=== PATIENT | female | born 1970 | race Caucasian/White ===

== ENCOUNTER 2019-03-23 12:48 | Observation (INO) | payer BC ==
--- NOTE | 2019-03-23 13:02 | PDOC ---
History of Present Illness - General Chief Complaint: Lightheaded Stated Complaint: LIGHTHEADED Time Seen by Provider: 03/23/19 13:02 History Source: Patient Exam Limitations: No Limitations - History of Present Illness Initial Comments: 03/23/19 14:08 49yF w PMHx HLD presenting w lightheadedness, dizziness, R ear tinnitus. Has had symptoms progressively worsening for past 2 weeks not improved w meclizine. 4d ago saw ENT, diagnosed w R ear infection, prescribed ciprofloxacin ear drops , cefdinir. Currently has constant dizziness (room spinning) worse w movement, and new chills for past 2d. Denies fever, headache, nausea/vomiting, chest pain , SOB. Past History - Past Medical History Allergies/Adverse Reactions: Allergies Allergy/AdvReac Type Severity Reaction Status Date / Time codeine AdvReac Intermediate Verified 03/23/19 12:54 Home Medications: Ambulatory Orders Ibuprofen [Motrin -] 600 mg PO TID PRN #21 tablet 08/14/13 Tramadol HCl 50 mg PO BID PRN #10 tablet 08/14/13 COPD: No Other medical history: vertigo - Immunization History Immunization Up to Date: No - Psycho Social/Smoking Cessation Hx Smoking History: Never smoked Have you smoked in the past 12 months: No Information on smoking cessation initiated: No Hx Alcohol Use: No Drug/Substance Use Hx: No Review of Systems - Review of Systems Constitutional: Yes: Chills. No: Fever HEENTM: No: Eye Pain, Recent change in vision, Ear Pain, Nose Pain, Throat Pain , Mouth Pain Respiratory: No: Cough, Shortness of Breath Cardiac (ROS): No: Chest Pain, Palpitations ABD/GI: No: Abdominal Distended, Constipated, Diarrhea, Nausea, Vomiting : No: Burning, Dysuria, Hematuria Musculoskeletal: No: Back Pain, Joint Pain Integumentary: No: Bruising, Flushing, Lesions Neurological: Yes: Unsteady Gait, Dizziness. No: Headache, Seizure, Tingling Psychiatric: No: Anxiety, Depression Endocrine: No: Excessive Sweating, Flushing, Intolerance to Cold, Intolerance to Heat Hematologic/Lymphatic: No: Anemia, Blood Clots *Physical Exam - Vital Signs Last Vital Signs Temp Pulse Resp BP Pulse Ox 98.8 F 93 H 18 143/80 98 03/23/19 12:55 03/23/19 12:55 03/23/19 12:55 03/23/19 12:55 03/23/19 12:55 - Physical Exam General Appearance: Yes: Nourished, Appropriately Dressed, Mild Distress HEENT: positive: EOMI (no nystagmus), WILDER, Normal Voice, Hearing Grossly Normal. negative: Scleral Icterus (R), Scleral Icterus (L), Tonsillar Exudate, Tonsillar Erythema, TM Bulging, TM Dull, TM Erythema Respiratory/Chest: positive: Lungs Clear, Normal Breath Sounds. negative: Chest Tender, Respiratory Distress, Crackles, Rales, Rhonchi, Stridor, Wheezing Cardiovascular: positive: Regular Rhythm, S1, S2, Tachycardia. 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 negative: Normal Mood/Affect (tearful, anxious), Sensory Deficit, Confused, Disoriented ED Treatment Course - LABORATORY CBC & Chemistry Diagram: 03/23/19 14:00 03/23/19 14:00 Medical Decision Making - Medical Decision Making 03/23/19 14:10 EKG shows NSR, HR 78, QTc 449, no ST changes Head CT showed no acute bleed/infarct/mass lesion CXR showed L basilar haziness, no focal consolidation --- 49yF w PMHx HLD presenting w lightheadedness, vertigo, R ear tinnitus d/t peripheral vs central vertigo vs Meniere's. Normal neuro exam including neg finger/nose, alternating hands, alejandra-hallpike, with the exception of unstable balance standing up with feet together/eyes closed/palms upwards. Low concern for CVA (no focal deficits, no findings on head CT) vs ACS (neg trop, NSR EKG) vs (tested neg) vs anemia (Hgb normal) vs UTI (clean UA) Given tylenol, benadryl, reglan, 1L NS without any symptom relief. Consulted neuro Dr Mosqueda regarding vertigo - advised order zofran, brain MRI w /o contrast Admitted to m/s Dr Sylvester for vertigo Discharge - Discharge Information Problems reviewed: Yes Clinical Impression/Diagnosis: Vertigo Tinnitus Qualifiers: Laterality: right Qualified Code(s): H93.11 - Tinnitus, right ear Condition: Stable - Follow up/Referral Referrals: oS Ansari MD [Primary Care Provider] - - Patient Discharge Instructions - Post Discharge Activity
[2019-03-23] MEDS ORDERED: METOCLOPRAMIDE HCL INJECTION 10 MG/2 ML VIAL IVPUSH ONE (13:23)
[2019-03-23] MEDS ORDERED: SODIUM CHLORIDE 0.9% 1000 ML INFUS.BAG IV ONE (13:23)
[2019-03-23] MEDS ORDERED: ACETAMINOPHEN 1000 MG/100 ML VIAL (NON FORMULARY) IVPB ONE (13:23)
[2019-03-23] MEDS ORDERED: METOCLOPRAMIDE HCL INJECTION 10 MG/2 ML VIAL ONE (13:27)
[2019-03-23] MEDS ORDERED: ACETAMINOPHEN INJECTION 100 ML IVPB ONE ×2 (13:28→15:29)
[2019-03-23 14:18] LABS: BASO % 1.3 % (0-2.0); EOS % 3.2 % (0-4.5); HEMATOCRIT 37.5 % (32.4-45.2); HEMOGLOBIN 12.4 GM/dL (10.7-15.3); LYMPH % 26.5 % (8-40); MCH 26.2 pg (25.7-33.7); MCHC 32.9 g/dl (32.0-36.0); MEAN CELL VOLUME 79.7 fl (80-96); MEAN PLT VOLUME 8.4 fl (7.5-11.1); PLATELET COUNT 403 K/MM3 (134-434); RBC 4.71 M/mm3 (3.60-5.2); RDW 15.5 % (11.6-15.6); WHITE BLOOD COUNT 8.9 K/mm3 (4.0-10.0)
--- NOTE | 2019-03-23 14:18 | PDOC ---
Documentation entered by Susu Zavaleta SCRIBE, acting as scribe for Grazyna Villar DO. Grazyna Villar, DO: This documentation has been prepared by the Waqar dixon Joy, SCRIBE, under my direction and personally reviewed by me in its entirety. I confirm that the documentation accurately reflects all work, treatment, procedures, and medical decision making performed by me. Attending Attestation - Resident Resident Name: Slim,Rowdy - ED Attending Attestation I have performed the following: I have examined & evaluated the patient, The case was reviewed & discussed with the resident, I agree w/resident's findings & plan, Exceptions are as noted - HPI HPI: 03/23/19 13:37 The patient is a 49 year old female, with no significant PMH of who presents to the emergency department with dizziness for 2 weeks. Patient endorses constant dizziness that worsens with head movement. As per patient, she has seen her ENT on Sunday (03/19/19), had wax removed from her ear, and was prescribed antibiotics. Denies headache. Denies chest pain or shortness of breath. Denies fever or chills. Denies nausea, vomiting, diarrhea and constipation. Allergies: Codeine adverse reaction - Physicial Exam PE: 03/23/19 14:11 49yo female with recent dx of ear infection and wax removal by ENT with dizziness x 2 weeks -saw pmd who recommended meclizine, states it made her more dizzy -saw ENT who removed wax and start abx -cefdinir and ear steroids, states feeling better on abx, but didn't improve dizziness -feels vertiginous, sometimes with vizcarra, sometimes feels she gets blurred vision when reading and dizzy -feels she is on a boat -hx of motion sickness -will send labs, ekg, cxr, head ct -will hydrate, reglan, benadryl - Medical Decision Making 03/23/19 14:17 Gen: aaox3, uncomfortable heent: MMM, perrl, eomi neck: supple heart: +s1s2 reg lungs: cta b/l abd: soft, nt/nd +bs ext: no c/c/e neuro: cn ii-xii grossly intact, muscle strength 5/5 UE and LE, sensation intact , normal finger to nose skin: no rashes 03/23/19 14:35 pt ambulatory in the ER with a steady gait 03/23/19 15:14 labs reviewed pt to head ct 03/23/19 15:[address] neg Heart Score/ECG Review - ECG Intrepretation Comment:: 03/23/19 14:18 sinus at 78, nl axis, nl interval, no acute st/t wave findings
[2019-03-23 14:47] LABS: ALK PHOS 79 U/L (45-117); ANION GAP 6 MMOL/L (8-16); BILIRUBIN,TOTAL 0.6 mg/dL (0.2-1); BLOOD UREA NITROGEN 8.5 mg/dL (7-18); CALCIUM 9.2 mg/dL (8.5-10.1); CHLORIDE 108 mmol/L (98-107); CO2 27 mmol/L (21-32); CREATININE 0.7 mg/dL (0.55-1.3); GLUCOSE,RANDOM 123 mg/dL (74-106); MAGNESIUM 2.1 mg/dL (1.8-2.4); POTASSIUM 3.8 mmol/L (3.5-5.1); SGOT/AST 9 U/L (15-37); SGPT/ALT 19 U/L (13-61); SODIUM 141 mmol/L (136-145); TOT PROT 7.5 g/dl (6.4-8.2)
[2019-03-23 15:07] LABS: EPI CELLS 1.5 /HPF (0-5/HPF); HYALINE CASTS 0 /lpf (0-8); PH,URINE 7.5 (5.0-8.0); URINE APPEARANCE CLEAR; URINE BACTERIA 1.4 /hpf (NEGATIVE); URINE BILIRUBIN NEGATIVE (NEGATIVE); URINE COLOR YELLOW; URINE GLUCOSE (UA) NEGATIVE (NEGATIVE); URINE KETONE NEGATIVE (NEGATIVE); URINE LEUK ESTERASE 1+ (NEGATIVE); URINE NITRITE NEGATIVE (NEGATIVE); URINE PROTEIN NEGATIVE (NEGATIVE); URINE RBC 2 /hpf (0-4); URINE UROBILINOGEN 0.2 mg/dL (0.2-1.0); URINE WBC 6 /hpf (0-5)
[2019-03-23] MEDS ORDERED: ONDANSETRON 4 MG/2 ML VIAL IVPUSH ONE (17:08)
[2019-03-23] MEDS ORDERED: MECLIZINE HCL 25 MG TABLET (FP) PO ONE (18:00)
--- NOTE | 2019-03-23 18:00 | PN ---
Teaching Attending Note Name of Resident: Sierra Rose ATTENDING PHYSICIAN STATEMENT I saw and evaluated the patient. I reviewed the resident's note and discussed the case with the resident. I agree with the resident's findings and plan as documented. SUBJECTIVE: Patient is a 49yo female with recent dx of ear infection on ceftin( day #4 today ).As per patient after ear wax removal from ENT's office, she developed infection and feels dizzy when she moves her neck, no fever but chills, was started on ceftin day #4 and cipro ear drops. OBJECTIVE: Vital Signs Temperature 98.8 F 03/23/19 12:55 Pulse Rate 93 H 03/23/19 12:55 Respiratory Rate 18 03/23/19 12:55 Blood Pressure 143/80 03/23/19 12:55 O2 Sat by Pulse Oximetry (%) 98 03/23/19 12:55 GENERAL: The patient is awake, alert, and fully oriented, in no acute distress. HEAD: Normal with no signs of trauma. EYES: PERRL, extraocular movements intact, sclera anicteric, conjunctiva clear. ENT: right ear fullness , left is normal , oropharynx clear without exudates, moist mucous membranes. NECK: Trachea midline, full range of motion, supple. LUNGS: Breath sounds equal, clear to auscultation bilaterally, no wheezes, no crackles, no accessory muscle use. HEART: Regular rate and rhythm, S1, S2 without murmur, rub or gallop. ABDOMEN: Soft, nontender, nondistended, normoactive bowel sounds, no guarding, no rebound, no hepatosplenomegaly, no masses. EXTREMITIES: 2+ pulses, warm, well-perfused, no edema. NEUROLOGICAL: Cranial nerves II through XII grossly intact. Normal speech, gait not observed. PSYCH: Normal mood, normal affect. SKIN: Warm, dry, normal turgor, no rashes or lesions noted CBCD WBC 8.9 K/mm3 (4.0-10.0) 03/23/19 14:00 RBC 4.71 M/mm3 (3.60-5.2) 03/23/19 14:00 Hgb 12.4 GM/dL (10.7-15.3) 03/23/19 14:00 Hct 37.5 % (32.4-45.2) 03/23/19 14:00 MCV 79.7 fl (80-96) L 03/23/19 14:00 MCHC 32.9 g/dl (32.0-36.0) 03/23/19 14:00 RDW 15.5 % (11.6-15.6) 03/23/19 14:00 Plt Count 403 K/MM3 (134-434) 03/23/19 14:00 MPV 8.4 fl (7.5-11.1) 03/23/19 14:00 CMP Sodium 141 mmol/L (136-145) 03/23/19 14:00 Potassium 3.8 mmol/L (3.5-5.1) 03/23/19 14:00 Chloride 108 mmol/L (98-107) H 03/23/19 14:00 Carbon Dioxide 27 mmol/L (21-32) 03/23/19 14:00 Anion Gap 6 MMOL/L (8-16) L 03/23/19 14:00 BUN 8.5 mg/dL (7-18) 03/23/19 14:00 Creatinine 0.7 mg/dL (0.55-1.3) 03/23/19 14:00 Random Glucose 123 mg/dL (74-106) H 03/23/19 14:00 Calcium 9.2 mg/dL (8.5-10.1) 03/23/19 14:00 Total Bilirubin 0.6 mg/dL (0.2-1) 03/23/19 14:00 AST 9 U/L (15-37) L 03/23/19 14:00 ALT 19 U/L (13-61) 03/23/19 14:00 Alkaline Phosphatase 79 U/L (45-117) 03/23/19 14:00 Total Protein 7.5 g/dl (6.4-8.2) 03/23/19 14:00 Albumin 4.0 g/dl (3.4-5.0) 03/23/19 14:00 CARDIAC ENZYMES Creatine Kinase 54 U/L (26-192) 03/23/19 14:00 Troponin I < 0.02 ng/ml (0.00-0.05) 03/23/19 14:00 Home Medications Medication Instructions Recorded Ibuprofen [Motrin -] 600 mg PO TID PRN #21 tablet 08/14/13 Tramadol HCl 50 mg PO BID PRN #10 tablet 08/14/13 ASSESSMENT AND PLAN: Patient is a 49yo female with no significant PMHx , a month ago patient was seen By ENT where had a wax removed from the right ear, as per patient afterward developed right ear infection where she was given Ceftin for a week , taken 4 days of oral antibiotics and started to feel worse and became very dizzy and was given oral Meclizine which did not help. Patient presented TODAY with worsening symptoms, AND UNABLE TO AMBULATE SINCE IS FEELING TOO DIZZY DESPITE MULTIPLE AGENTS THAT WAS GIVEN IN ED. WILL PLACE THE PATIENT ON OBSERVATION. MRI ORDERED BY NEUROLOGIST. #Acute dizziness #Right ear infection WILL START THE PATIENT ON IV ROCEPHIN #positional vertigo IVF Rocephin 1GM IV ear drops; CORTISPORIN OTIC ENT consult MRI is pending neuro consult Panda requesting MRI DVT PX;
[2019-03-23] MEDS ORDERED: ONDANSETRON 4 MG/2 ML VIAL ONE (18:02)
[2019-03-23] MEDS ORDERED: MECLIZINE HCL 25 MG TABLET (FP) ONE (18:02)
--- NOTE | 2019-03-23 18:49 | HP ---
CHIEF COMPLAINT: dizziness PCP: Elida ENT: Robert HISTORY OF PRESENT ILLNESS: Ms. Beverly is a 49y/o female with HLD who presents with dizziness x 2 weeks. She reports initially feeling dizzy suddenly when she woke up. She would have worsening dizziness when moving her head to the right, but now moving either direction makes it worse. Going from lying to sitting or sitting to standing does not change the dizziness. She denies tinnitus. She went to the chiropractor for Filomena maneuver but was unsuccessful. She also has associated nausea but no vomiting. She went to the ENT about 10 days ago and had cerumen that was cleared from her right ear. She later developed pain and returned about 5 days ago. She was diagnosed with otitis externa and pharyngitis and was given Cipro drops and PO Ceftin. The dizziness improved for a couple days and 2 days ago worsened. She also reports chills, generalized headache, and neck pain/ spasm. She has been able to eat and drink normally. 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 HEAD: Normal with no signs of trauma. EYES: Pupils equal, round and reactive to light, extraocular movements intact, conjunctiva clear. EARS, NOSE, THROAT: Right ear canal slight erythema with small amount of cerumen normal TM, left ear canal normal and TM normal, nares patent, moist mucous membranes, slightly erythematous pharynx on right side. NECK: Normal range of motion, supple without lymphadenopathy LUNGS: Clear to auscultation bilaterally HEART: Regular rate and rhythm, no murmurs ABDOMEN: Soft, nontender, not distended, normoactive bowel sounds MUSCULOSKELETAL: Normal range of motion at all joints. Right trapezius tenderness on palpation UPPER EXTREMITIES: Warm, well-perfused. No peripheral edema. Strength grossly intact. LOWER EXTREMITIES: Warm, well-perfused. No peripheral edema. Strength grossly intact. NEUROLOGICAL: Cranial nerves II-XII grossly intact. Normal speech. PSYCHIATRIC: Appropriate mood and affect. SKIN: Warm, dry, normal turgor, no rashes Laboratory Results - last 24 hr 03/23/19 03/23/19 03/23/19 14:00 14:00 14:00 WBC 8.9 RBC 4.71 Hgb 12.4 Hct 37.5 MCV 79.7 L MCH 26.2 MCHC 32.9 RDW 15.5 Plt Count 403 MPV 8.4 Absolute Neuts (auto) 5.7 Neutrophils % 64.0 Lymphocytes % 26.5 Monocytes % 5.0 Eosinophils % 3.2 Basophils % 1.3 Nucleated RBC % 0 Sodium 141 Potassium 3.8 Chloride 108 H Carbon Dioxide 27 Anion Gap 6 L BUN 8.5 Creatinine 0.7 Est GFR (CKD-EPI)AfAm 118.74 Est GFR (CKD-EPI)NonAf 102.45 Random Glucose 123 H Calcium 9.2 Magnesium 2.1 Total Bilirubin 0.6 AST 9 L ALT 19 Alkaline Phosphatase 79 Creatine Kinase Cancelled 54 Troponin I Cancelled < 0.02 Total Protein 7.5 Albumin 4.0 Serum , Qual Urine Color Urine Appearance Urine pH Ur Specific [place] Urine Protein Urine Glucose (UA) Urine Ketones Urine Blood Urine Nitrite Urine Bilirubin Urine Urobilinogen Ur Leukocyte Esterase Urine WBC (Auto) Urine RBC (Auto) Urine Casts (Auto) U Epithel Cells (Auto) Urine Bacteria (Auto) Blood Type Antibody Screen 03/23/19 03/23/19 03/23/19 14:00 14:00 14:00 WBC RBC Hgb Hct MCV MCH MCHC RDW Plt Count MPV Absolute Neuts (auto) Neutrophils % Lymphocytes % Monocytes % Eosinophils % Basophils % Nucleated RBC % Sodium Potassium Chloride Carbon Dioxide Anion Gap BUN Creatinine Est GFR (CKD-EPI)AfAm Est GFR (CKD-EPI)NonAf Random Glucose Calcium Magnesium Cancelled Total Bilirubin AST ALT Alkaline Phosphatase Creatine Kinase Troponin I Total Protein Albumin Serum , Qual Negative Urine Color Urine Appearance Urine pH Ur Specific [place] Urine Protein Urine Glucose (UA) Urine Ketones Urine Blood Urine Nitrite Urine Bilirubin Urine Urobilinogen Ur Leukocyte Esterase Urine WBC (Auto) Urine RBC (Auto) Urine Casts (Auto) U Epithel Cells (Auto) Urine Bacteria (Auto) Blood Type O POSITIVE Antibody Screen Negative 03/23/19 14:55 WBC RBC Hgb Hct MCV MCH MCHC RDW Plt Count MPV Absolute Neuts (auto) Neutrophils % Lymphocytes % Monocytes % Eosinophils % Basophils % Nucleated RBC % Sodium Potassium Chloride Carbon Dioxide Anion Gap BUN Creatinine Est GFR (CKD-EPI)AfAm Est GFR (CKD-EPI)NonAf Random Glucose Calcium Magnesium Total Bilirubin AST ALT Alkaline Phosphatase Creatine Kinase Troponin I Total Protein Albumin Serum , Qual Urine Color Yellow Urine Appearance Clear Urine pH 7.5 Ur Specific [place] 1.010 Urine Protein Negative Urine Glucose (UA) Negative Urine Ketones Negative Urine Blood Negative Urine Nitrite Negative Urine Bilirubin Negative Urine Urobilinogen 0.2 Ur Leukocyte Esterase 1+ H Urine WBC (Auto) 6 Urine RBC (Auto) 2 Urine Casts (Auto) 0 U Epithel Cells (Auto) 1.5 Urine Bacteria (Auto) 1.4 Blood Type Antibody Screen ASSESSMENT/PLAN: Ms. Beverly is a 49y/o female with HLD and allergic rhinitis who presents with 2 weeks of dizziness. #dizziness -MRI brain -zofran -meclizine just given -neuro consulted -ENT consulted #right otitis externa -cipro ear drops QID -flonase 1 spray daily #pharyngitis -ceftriaxone 2g daily #HLD pt not currently on statin DVT Ppx SCDs FEN PO fluids monitor Mg, K regular diet Visit type - Emergency Visit Emergency Visit: Yes ED Registration Date: 03/23/19 Care time: The patient presented to the Emergency Department on the above date and was hospitalized for further evaluation of their emergent condition. - New Patient This patient is new to me today: Yes Date on this admission: 03/23/19 - Critical Care Critical Care patient: No ATTENDING PHYSICIAN STATEMENT I saw and evaluated the patient. I reviewed the resident's note and discussed the case with the resident. I agree with the resident's findings and plan as documented. SUBJECTIVE: OBJECTIVE: ASSESSMENT AND PLAN:
[2019-03-23] MEDS ORDERED: CEFTRIAXONE 2 GM/100 ML BAG IVPB ONE (19:48)
[2019-03-23] MEDS: NEOMYCIN/POLYMYXN/HC OTIC SOLUTION 10 ML BOTTLE AD SCH (20:08)
[2019-03-23] MEDS: CEFTRIAXONE 2 GM in DEXTROSE 5%-WATER 100 ML IVPB SCH (20:09)
[2019-03-23] MEDS ORDERED: ONDANSETRON 4 MG/2 ML VIAL IVPUSH PRN (22:00)
[2019-03-23 23:01] VITALS: BMI 40.0
[2019-03-23] MEDS ORDERED: PT OWN MED DRAWER 7, Y5N ONE (23:31)
[2019-03-24] MEDS: NEOMYCIN/POLYMYXN/HC OTIC SOLUTION 10 ML BOTTLE AD SCH ×4 (00:39→17:38)
[2019-03-24] MEDS ORDERED: PT OWN MED DRAWER 7, Y5N ONE ×6 (01:00→14:34)
[2019-03-24 08:19] LABS: BASO % 0.7 % (0-2.0); EOS % 3.9 % (0-4.5); HEMATOCRIT 33.1 % (32.4-45.2); MCH 26.2 pg (25.7-33.7); MCHC 33.1 g/dl (32.0-36.0); MEAN PLT VOLUME 8.1 fl (7.5-11.1); MONO % 6.2 % (3.8-10.2); NEUT % 48.2 % (42.8-82.8); PLATELET COUNT 386 K/MM3 (134-434); RBC 4.19 M/mm3 (3.60-5.2); RDW 15.7 % (11.6-15.6)
[2019-03-24 09:24] LABS: ALBUMIN 3.2 g/dl (3.4-5.0); BILIRUBIN,TOTAL 0.5 mg/dL (0.2-1); BLOOD UREA NITROGEN 8.5 mg/dL (7-18); CALCIUM 9.1 mg/dL (8.5-10.1); CREATININE 0.6 mg/dL (0.55-1.3); PHOSPHOROUS 4.1 mg/dL (2.5-4.9); TOT PROT 6.4 g/dl (6.4-8.2)
[2019-03-24] MEDS ORDERED: DEXTROSE 5%-WATER 100 ML IVPB ONE (09:32)
[2019-03-24] MEDS: CEFTRIAXONE 2 GM in DEXTROSE 5%-WATER 100 ML IVPB SCH (09:46)
[2019-03-24] MEDS ORDERED: FLUTICASONE PROP 0.05% 16 GM NASAL SPRAY NS SCH (10:00)
--- NOTE | 2019-03-24 10:11 | CON.NEURO ---
Consult - Past Medical History ...LMP: 03/02/19 ...: No - Alcohol/Substance Use Hx Alcohol Use: No (Social drink) - Smoking History Smoking history: Never smoked Have you smoked in the past 12 months: No Home Medications - Allergies Allergies/Adverse Reactions: Allergies Allergy/AdvReac Type Severity Reaction Status Date / Time codeine AdvReac Intermediate Verified 03/23/19 12:54 - Home Medications Home Medications: Ambulatory Orders Cefuroxime Axetil [Ceftin -] PO BID 03/23/19 Ciprofloxacin HCl/Dexameth [Ciprodex Otic Suspension] AU QID 03/23/19 Fluticasone Prop 0.05% Nasal [Flonase -] 1 spray IN DAILY 03/23/19 Physical Exam-Neuro Vital Signs: Vital Signs Temperature 98.4 F 03/24/19 06:43 Pulse Rate 83 03/24/19 06:43 Respiratory Rate 20 03/24/19 06:43 Blood Pressure 101/63 03/24/19 06:43 O2 Sat by Pulse Oximetry (%) 99 03/23/19 21:00 Labs: CBC, BMP 03/24/19 07:00 03/24/19 07:00 Assessment/Plan cc Vertigo sensation for two weeks HPI 49 year old female no significant past medical history except borderline HLD. 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 She has been to her pmd, ent ( gave her abx) and Chiropractioner before coming to hospital. She describes this feeling of dizziness and spinning sensation. Patient also have nausea, and she has her wax removed. Patient developed throat and neck pain and it got better. Patient was given abx, and she denies any focal neurological symptoms including dysphagia, dysarthria, diplopia. She is feeling better now. but still ahve some residual symptoms. She denies any fever, tinnitis, hearing difficulty or fullness in her ear. 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 Benign positional vertigo and now gettting better, afebrile, no focal neuro symptoms./ 2. otitis externa on abx Plan: agree with mri of brain - as she is claustrophobic , an ativan was ordered -pt continue current level of care Thanking you so much Prakash Mosqueda MD
[2019-03-24] MEDS ORDERED: LORazepam 2 MG/ML SDV VIAL IVPUSH ONE (11:00)
--- NOTE | 2019-03-24 13:30 | PN ---
Physical Exam: SUBJECTIVE: Patient seen and examined. She reports significantly decreased dizziness. She denies nausea or vomiting. Tolerating diet well. No generalized or focal weakness. Pt still reports chills but no fever. OBJECTIVE: Vital Signs Period Temp Pulse Resp BP Sys/Aponte Pulse Ox Last 24 Hr 98.2 F-98.9 F 63-83 17-20 101-141/63-82 99-100 GENERAL: Awake, alert, and fully oriented, in no acute distress. HEAD: Normal with no signs of trauma. EYES: Pupils equal, round and reactive to light, extraocular movements intact, conjunctiva clear. EARS, NOSE, THROAT: External ears normal, nares patent, moist mucous membranes, slightly erythematous pharynx on right side. NECK: Normal range of motion, supple without lymphadenopathy LUNGS: Clear to auscultation bilaterally HEART: Regular rate and rhythm, no murmurs ABDOMEN: Soft, nontender, not distended, normoactive bowel sounds MUSCULOSKELETAL: Normal range of motion at all joints. UPPER EXTREMITIES: Warm, well-perfused. No peripheral edema. LOWER EXTREMITIES: Warm, well-perfused. No peripheral edema. NEUROLOGICAL: Cranial nerves II-XII grossly intact. Normal speech. PSYCHIATRIC: Appropriate mood and affect. SKIN: Warm, dry, normal turgor, no rashes Laboratory Results - last 24 hr 03/23/19 03/23/19 03/23/19 07:26 14:00 14:00 WBC RBC Hgb Hct MCV MCH MCHC RDW Plt Count MPV Absolute Neuts (auto) Neutrophils % Lymphocytes % Monocytes % Eosinophils % Basophils % Nucleated RBC % PTT (Actin FS) 25.8 Sodium Potassium Chloride Carbon Dioxide Anion Gap BUN Creatinine Est GFR (CKD-EPI)AfAm Est GFR (CKD-EPI)NonAf Random Glucose Calcium Phosphorus Magnesium Total Bilirubin AST ALT Alkaline Phosphatase Creatine Kinase Cancelled Troponin I Cancelled Total Protein Albumin Serum , Qual Urine Color Urine Appearance Urine pH Ur Specific Ackworth Urine Protein Urine Glucose (UA) Urine Ketones Urine Blood Urine Nitrite Urine Bilirubin Urine Urobilinogen Ur Leukocyte Esterase Urine WBC (Auto) Urine RBC (Auto) Urine Casts (Auto) U Epithel Cells (Auto) Urine Bacteria (Auto) Blood Type O POSITIVE Antibody Screen 03/23/19 03/23/19 03/23/19 14:00 14:00 14:00 WBC 8.9 RBC 4.71 Hgb 12.4 Hct 37.5 MCV 79.7 L MCH 26.2 MCHC 32.9 RDW 15.5 Plt Count 403 MPV 8.4 Absolute Neuts (auto) 5.7 Neutrophils % 64.0 Lymphocytes % 26.5 Monocytes % 5.0 Eosinophils % 3.2 Basophils % 1.3 Nucleated RBC % 0 PTT (Actin FS) Sodium 141 Potassium 3.8 Chloride 108 H Carbon Dioxide 27 Anion Gap 6 L BUN 8.5 Creatinine 0.7 Est GFR (CKD-EPI)AfAm 118.74 Est GFR (CKD-EPI)NonAf 102.45 Random Glucose 123 H Calcium 9.2 Phosphorus Magnesium 2.1 Cancelled Total Bilirubin 0.6 AST 9 L ALT 19 Alkaline Phosphatase 79 Creatine Kinase 54 Troponin I < 0.02 Total Protein 7.5 Albumin 4.0 Serum , Qual Urine Color Urine Appearance Urine pH Ur Specific Ackworth Urine Protein Urine Glucose (UA) Urine Ketones Urine Blood Urine Nitrite Urine Bilirubin Urine Urobilinogen Ur Leukocyte Esterase Urine WBC (Auto) Urine RBC (Auto) Urine Casts (Auto) U Epithel Cells (Auto) Urine Bacteria (Auto) Blood Type Antibody Screen 03/23/19 03/23/19 03/23/19 14:00 14:00 14:55 WBC RBC Hgb Hct MCV MCH MCHC RDW Plt Count MPV Absolute Neuts (auto) Neutrophils % Lymphocytes % Monocytes % Eosinophils % Basophils % Nucleated RBC % PTT (Actin FS) Sodium Potassium Chloride Carbon Dioxide Anion Gap BUN Creatinine Est GFR (CKD-EPI)AfAm Est GFR (CKD-EPI)NonAf Random Glucose Calcium Phosphorus Magnesium Total Bilirubin AST ALT Alkaline Phosphatase Creatine Kinase Troponin I Total Protein Albumin Serum , Qual Negative Urine Color Yellow Urine Appearance Clear Urine pH 7.5 Ur Specific Ackworth 1.010 Urine Protein Negative Urine Glucose (UA) Negative Urine Ketones Negative Urine Blood Negative Urine Nitrite Negative Urine Bilirubin Negative Urine Urobilinogen 0.2 Ur Leukocyte Esterase 1+ H Urine WBC (Auto) 6 Urine RBC (Auto) 2 Urine Casts (Auto) 0 U Epithel Cells (Auto) 1.5 Urine Bacteria (Auto) 1.4 Blood Type O POSITIVE Antibody Screen Negative 03/24/19 03/24/19 07:00 07:00 WBC 6.0 RBC 4.19 Hgb 11.0 Hct 33.1 MCV 79.0 L MCH 26.2 MCHC 33.1 RDW 15.7 H Plt Count 386 MPV 8.1 Absolute Neuts (auto) 2.9 Neutrophils % 48.2 D Lymphocytes % 41.0 H D Monocytes % 6.2 Eosinophils % 3.9 Basophils % 0.7 Nucleated RBC % 0 PTT (Actin FS) Sodium 143 Potassium 4.0 Chloride 109 H Carbon Dioxide 23 Anion Gap 11 BUN 8.5 Creatinine 0.6 Est GFR (CKD-EPI)AfAm 124.92 Est GFR (CKD-EPI)NonAf 107.78 Random Glucose 90 Calcium 9.1 Phosphorus 4.1 Magnesium 2.0 Total Bilirubin 0.5 AST 7 L ALT 16 Alkaline Phosphatase 65 Creatine Kinase Troponin I Total Protein 6.4 Albumin 3.2 L Serum , Qual Urine Color Urine Appearance Urine pH Ur Specific Ackworth Urine Protein Urine Glucose (UA) Urine Ketones Urine Blood Urine Nitrite Urine Bilirubin Urine Urobilinogen Ur Leukocyte Esterase Urine WBC (Auto) Urine RBC (Auto) Urine Casts (Auto) U Epithel Cells (Auto) Urine Bacteria (Auto) Blood Type Antibody Screen Active Medications Generic Name Dose Route Start Last Admin Trade Name Freq PRN Reason Stop Dose Admin Fluticasone Propionate 2 spray 03/24/19 10:00 03/24/19 09:46 Flonase - NS 2 sprays DAILY JUAN R Administration Ceftriaxone Sodium 2 gm/ 100 mls @ 200 mls/hr 03/23/19 18:30 03/24/19 09:46 Dextrose IVPB 200 mls/hr DAILY JUAN R Administration Protocol Neomycin/Polymyxin/Hydrocortisone 4 drop 03/23/19 18:30 03/24/19 05:51 Cortisporin Otic Solution - AD 4 drop Q6HPO JUAN R Administration Ondansetron HCl 4 mg 03/23/19 22:00 Zofran Injection IVPUSH Q6H PRN NAUSEA ASSESSMENT/PLAN: Ms. Beverly is a 49y/o female with HLD and allergic rhinitis who presents with 2 weeks of dizziness. She had cerumen impaction that was cleared then a week later diagnosed with otitis externa and pharyngitis. She was on PO abx and otic abx but dizziness worsened. #dizziness 2/2 left mastoid effusions, improved -MRI brain- multiple air cells effusion -ceftriaxone 2g daily (03/23) -meclizine PRN -neuro following -ENT will see pt today #right otitis externa #pharyngitis -cipro ear drops QID -flonase 1 spray daily #HLD pt reports she is not currently on statin DVT Ppx SCDs FEN PO fluids monitor labs regular diet dispo med/surg Visit type - Emergency Visit Emergency Visit: Yes ED Registration Date: 03/23/19 Care time: The patient presented to the Emergency Department on the above date and was hospitalized for further evaluation of their emergent condition. - New Patient This patient is new to me today: No - Critical Care Critical Care patient: No - Discharge Referral Referred to [facility] Med P.C.: No ATTENDING PHYSICIAN STATEMENT I saw and evaluated the patient. I reviewed the resident's note and discussed the case with the resident. I agree with the resident's findings and plan as documented. SUBJECTIVE: OBJECTIVE: ASSESSMENT AND PLAN:
--- NOTE | 2019-03-24 13:33 | EKG ---
Test Reason : Blood Pressure : / mmHG Vent. Rate : 078 BPM Atrial Rate : 078 BPM P-R Int : 122 ms QRS Dur : 078 ms QT Int : 394 ms P-R-T Axes : 034 048 039 degrees QTc Int : 449 ms NORMAL SINUS RHYTHM WITH SINUS ARRHYTHMIA NORMAL ECG NO PREVIOUS ECGS AVAILABLE Confirmed by FAISAL NOEL MD ([id number]) on 03/24/2019 1:33:33 PM Referred By: Confirmed By:FAISAL NOEL MD
[2019-03-24] MEDS ORDERED: MECLIZINE HCL 25 MG TABLET (FP) PO ONE (14:30)
--- NOTE | 2019-03-24 16:21 | PN ---
Teaching Attending Note Name of Resident: Sierra Rose ATTENDING PHYSICIAN STATEMENT I saw and evaluated the patient. I reviewed the resident's note and discussed the case with the resident. I agree with the resident's findings and plan as documented. SUBJECTIVE: Patient is feeling better , after cortisporin otic and rocephin iv and meclizine Vital Signs Temperature 98.5 F 03/24/19 14:00 Pulse Rate 85 03/24/19 14:00 Respiratory Rate 18 03/24/19 14:00 Blood Pressure 129/74 03/24/19 14:00 O2 Sat by Pulse Oximetry (%) 99 03/23/19 21:00 GENERAL: The patient is awake, alert, and fully oriented, in no acute distress. HEAD: Normal with no signs of trauma. EYES: PERRL, extraocular movements intact, sclera anicteric, conjunctiva clear. ENT: right ear fullness , left is normal , oropharynx clear without exudates, moist mucous membranes. NECK: Trachea midline, full range of motion, supple. LUNGS: Breath sounds equal, clear to auscultation bilaterally, no wheezes, no crackles, no accessory muscle use. HEART: Regular rate and rhythm, S1, S2 without murmur, rub or gallop. ABDOMEN: Soft, nontender, nondistended, normoactive bowel sounds, no guarding, no rebound, no hepatosplenomegaly, no masses. EXTREMITIES: 2+ pulses, warm, well-perfused, no edema. NEUROLOGICAL: Cranial nerves II through XII grossly intact. Normal speech, gait not observed. PSYCH: Normal mood, normal affect. SKIN: Warm, dry, normal turgor, no rashes or lesions noted CBCD WBC 8.9 K/mm3 (4.0-10.0) 03/23/19 14:00 RBC 4.71 M/mm3 (3.60-5.2) 03/23/19 14:00 Hgb 12.4 GM/dL (10.7-15.3) 03/23/19 14:00 Hct 37.5 % (32.4-45.2) 03/23/19 14:00 MCV 79.7 fl (80-96) L 03/23/19 14:00 MCHC 32.9 g/dl (32.0-36.0) 03/23/19 14:00 RDW 15.5 % (11.6-15.6) 03/23/19 14:00 Plt Count 403 K/MM3 (134-434) 03/23/19 14:00 MPV 8.4 fl (7.5-11.1) 03/23/19 14:00 CMP Sodium 141 mmol/L (136-145) 03/23/19 14:00 Potassium 3.8 mmol/L (3.5-5.1) 03/23/19 14:00 Chloride 108 mmol/L (98-107) H 03/23/19 14:00 Carbon Dioxide 27 mmol/L (21-32) 03/23/19 14:00 Anion Gap 6 MMOL/L (8-16) L 03/23/19 14:00 BUN 8.5 mg/dL (7-18) 03/23/19 14:00 Creatinine 0.7 mg/dL (0.55-1.3) 03/23/19 14:00 Random Glucose 123 mg/dL (74-106) H 03/23/19 14:00 Calcium 9.2 mg/dL (8.5-10.1) 03/23/19 14:00 Total Bilirubin 0.6 mg/dL (0.2-1) 03/23/19 14:00 AST 9 U/L (15-37) L 03/23/19 14:00 ALT 19 U/L (13-61) 03/23/19 14:00 Alkaline Phosphatase 79 U/L (45-117) 03/23/19 14:00 Total Protein 7.5 g/dl (6.4-8.2) 03/23/19 14:00 Albumin 4.0 g/dl (3.4-5.0) 03/23/19 14:00 CARDIAC ENZYMES Creatine Kinase 54 U/L (26-192) 03/23/19 14:00 Troponin I < 0.02 ng/ml (0.00-0.05) 03/23/19 14:00 Home Medications Medication Instructions Recorded Ibuprofen [Motrin -] 600 mg PO TID PRN #21 tablet 08/14/13 Tramadol HCl 50 mg PO BID PRN #10 tablet 08/14/13 MRI of the brain: right ear effusion , no other abnormality ASSESSMENT AND PLAN: Patient is a 49yo female with no significant PMHx , a month ago patient was seen By ENT where had a wax removed from the right ear, as per patient afterward developed right ear infection where she was given Ceftin for a week , taken 4 days of oral antibiotics and started to feel worse and became very dizzy and was given oral Meclizine which did not help. Patient presented YESTERDAY with worsening symptoms, AND UNABLE TO AMBULATE SINCE WAS FEELING TOO DIZZY DESPITE MULTIPLE AGENTS THAT WAS GIVEN IN ED. MRI ABOVE. # Ear effusions: ENT will see the patient today #Acute dizziness IMPROVED continue meclizine 12.5mg (1-2 tablets) tid #Right ear infection: continue with Ceftin 250mg bid as an outpatient, continue ear drops patient has Cipro with steroid. #positional vertigo ; ear drops cortisporin otic continue ENT consult appreciated , patient zaira follow up with the Dr.Tom ayers MRI as above
--- NOTE | 2019-03-24 19:23 | CON.ENT ---
Consult Consult Specialty:: ENT Reason for Consultation:: ear pain, dizziness - History of Present Illness Chief Complaint: right ear pain, dizziness History of Present Illness: 49 yo F with recent hx right ear pain, was treated in office by Dr. Fontenot, found infection, rx oral antibiotics and topical antibiotic eardrops. improved had dizziness, admitteed to [facility] CT of ehad, MRi of brain and Neurology consultation performed, reviewed ] pt is feeling better since admission, no further ear pain, hearing ok, dizziness improved, has been ambulatory, took meclizine 12.5 mg - History Source History Provided By: Patient, Medical Record Limitations to Obtaining History: No Limitations - Past Medical History ...LMP: 03/02/19 ...: No - Alcohol/Substance Use Hx Alcohol Use: No (Social drink) - Smoking History Smoking history: Never smoked Have you smoked in the past 12 months: No Home Medications - Allergies Allergies/Adverse Reactions: Allergies Allergy/AdvReac Type Severity Reaction Status Date / Time codeine AdvReac Intermediate Verified 03/23/19 12:54 - Home Medications Home Medications: Ambulatory Orders Cefuroxime Axetil [Ceftin -] 250 mg PO BID 03/23/19 Ciprofloxacin HCl/Dexameth [Ciprodex Otic Suspension] 1 drop AU QID 03/23/19 Fluticasone Prop 0.05% Nasal [Flonase -] 1 spray IN DAILY 03/23/19 Physical Exam-ENT Vital Signs: Vital Signs Temperature 99.9 F H 03/24/19 18:00 Pulse Rate 90 03/24/19 18:00 Respiratory Rate 18 03/24/19 18:00 Blood Pressure 127/82 03/24/19 18:00 O2 Sat by Pulse Oximetry (%) 99 03/24/19 10:00 Constitutional: Yes: Well Nourished, No Distress, Calm Head: Yes: WNL Face: Yes: WNL Eyes: Yes: WNL Nose: Yes: WNL, Septum Deviated (mildly to left, mucosa sl dry, no bleeding or crusting) Oral/Pharynx: Yes: WNL Outer Ear: Yes: WNL Ear Canal: Yes: WNL Tympanic Membrane: Yes: WNL Neck: Yes: WNL Imaging - Results Cat Scan: Report Reviewed, Image Reviewed MRI: Report Reviewed Problem List - Problems (1) Ear pain, right Assessment/Plan: improved with oral and topical antibiotic therapy recommend, complete oral antibiotic course as prescribed eardrops may continue for 1-2 more days f/u in office as scheduled 03-31-19 Code(s): H92.01 - OTALGIA, RIGHT EAR (2) Vertigo Assessment/Plan: improved MRI no tumor trace fluid in right mastoid noted on meclizine, was 25 mg, now 12,.5 mg Recommend: activity as tolerated continue meclizine 12.5 mg 1-2 tabs tid prn dizziness vestibular rehabilitation therapy as outpatient OK for discharge from ENT perspective, as long as pt meets standard discharge criteria f/u in office as scheduled 03-31-2019 Ronaldo Jones MD FACS Code(s): R42 - DIZZINESS AND GIDDINESS
--- NOTE | 2019-03-24 21:29 | DS ---
Physical Exam: SUBJECTIVE: Patient seen and examined. She reports significantly decreased dizziness. She denies nausea or vomiting. Tolerating diet well. No generalized or focal weakness. Pt still reports chills but no fever. OBJECTIVE: Vital Signs Period Temp Pulse Resp BP Sys/Aponte Pulse Ox Last 24 Hr 98.4 F-99.9 F 76-90 18-20 101-139/63-82 99-99 PHYSICAL EXAM GENERAL: Awake, alert, and fully oriented, in no acute distress. HEAD: Normal with no signs of trauma. EYES: Pupils equal, round and reactive to light, extraocular movements intact, conjunctiva clear. EARS, NOSE, THROAT: External ears normal, nares patent, moist mucous membranes, slightly erythematous pharynx on right side. NECK: Normal range of motion, supple without lymphadenopathy LUNGS: Clear to auscultation bilaterally HEART: Regular rate and rhythm, no murmurs ABDOMEN: Soft, nontender, not distended, normoactive bowel sounds MUSCULOSKELETAL: Normal range of motion at all joints. UPPER EXTREMITIES: Warm, well-perfused. No peripheral edema. LOWER EXTREMITIES: Warm, well-perfused. No peripheral edema. NEUROLOGICAL: Cranial nerves II-XII grossly intact. Normal speech. PSYCHIATRIC: Appropriate mood and affect. SKIN: Warm, dry, normal turgor, no rashes LABS Laboratory Results - last 24 hr 03/23/19 03/23/19 03/24/19 07:26 14:00 07:00 WBC 6.0 RBC 4.19 Hgb 11.0 Hct 33.1 MCV 79.0 L MCH 26.2 MCHC 33.1 RDW 15.7 H Plt Count 386 MPV 8.1 Absolute Neuts (auto) 2.9 Neutrophils % 48.2 D Lymphocytes % 41.0 H D Monocytes % 6.2 Eosinophils % 3.9 Basophils % 0.7 Nucleated RBC % 0 PTT (Actin FS) 25.8 Sodium Potassium Chloride Carbon Dioxide Anion Gap BUN Creatinine Est GFR (CKD-EPI)AfAm Est GFR (CKD-EPI)NonAf Random Glucose Calcium Phosphorus Magnesium Total Bilirubin AST ALT Alkaline Phosphatase Total Protein Albumin Blood Type O POSITIVE 03/24/19 07:00 WBC RBC Hgb Hct MCV MCH MCHC RDW Plt Count MPV Absolute Neuts (auto) Neutrophils % Lymphocytes % Monocytes % Eosinophils % Basophils % Nucleated RBC % PTT (Actin FS) Sodium 143 Potassium 4.0 Chloride 109 H Carbon Dioxide 23 Anion Gap 11 BUN 8.5 Creatinine 0.6 Est GFR (CKD-EPI)AfAm 124.92 Est GFR (CKD-EPI)NonAf 107.78 Random Glucose 90 Calcium 9.1 Phosphorus 4.1 Magnesium 2.0 Total Bilirubin 0.5 AST 7 L ALT 16 Alkaline Phosphatase 65 Total Protein 6.4 Albumin 3.2 L Blood Type HOSPITAL COURSE: Ms. Beverly is a 49y/o female with HLD and allergic rhinitis who presents with 2 weeks of dizziness that was worse when moving head left or right. She had right ear cerumen impaction that was cleared then a week later diagnosed with otitis externa and pharyngitis. She was on PO Ceftin and Cipro otic solution but dizziness worsened, so the pt presented to the ED. Pt was neurologically intact. CT head was negative for acute processes. MRI brain showed on right side multiple air cells effusion. Neurology and ENT were consulted. Pt was given ceftriaxone and corticosporin during hospital course and meclizine PRN dizziness. She reported improvement in dizziness. ENT recommended finishing oral abx as prescribed and 1-2 more days of ear drops. She was also prescribed meclizine to be used PRN. She was instructed to follow up on 03/31 as scheduled in the ENT office. Date of Admission:03/23/19 Date of Discharge: 03/24/19 Minutes to complete discharge: 35 Discharge Summary Problems reviewed: Yes Reason For Visit: VERTIGO,TINNITUS Current Active Problems Ear pain, right (Acute) Tinnitus (Acute) Vertigo (Acute) Condition: Stable - Instructions Diet, Activity, Other Instructions: YOUR VISIT: You were admitted to the hospital for dizziness. You were also treated for an ear infection and throat infection. MEDICATIONS: Continue Flonase spray once a day. your antibiotic, Ceftin, until completion. your ear drops, Cipro, for 2 more days. meclizine 12.5mg 1-2 tablets up to 3 times a day for dizziness FOLLOW UP: Dr. Martinez, ENT, on 03/31/19 Dr. Hunt, primary care, [address] Mosqueda, neurology, 1 week after discharge. ENT Recommendations: activity as tolerated continue vestibular rehabilitation therapy follow up in office as scheduled 03-31-2019 OTHER INSTRUCTIONS: Return to the emergency room or call 911 if you have worsening dizziness, vomiting, fever above 101, changes in hearing, ringing in the ears, chest pain, or difficulty breathing. Referrals: Prakash Mosqueda MD [Staff Physician] - 1 Week Ronaldo Jones MD [Staff Physician] - 1 Week So Ansari MD [Non Staff, Medical] - 1 Week Ren Fontenot MD [Staff Physician] - Disposition: HOME - Home Medications Comprehensive Discharge Medication List: Ambulatory Orders Cefuroxime Axetil [Ceftin -] 250 mg PO BID 03/23/19 Ciprofloxacin HCl/Dexameth [Ciprodex Otic Suspension] 1 drop AU QID 03/23/19 Fluticasone Prop 0.05% Nasal [Flonase -] 1 spray IN DAILY 03/23/19 Meclizine HCl 12.5 mg PO TID #30 tablet 03/24/19 This patient is new to me today: No Emergency Visit: Yes ED Registration Date: 03/23/19 Care time: The patient presented to the Emergency Department on the above date and was hospitalized for further evaluation of their emergent condition. Critical Care patient: No - Discharge Referral Referred to [facility] Med P.C.: No ATTENDING PHYSICIAN STATEMENT I saw and evaluated the patient. I reviewed the resident's note and discussed the case with the resident. I agree with the resident's findings and plan as documented. SUBJECTIVE: OBJECTIVE: ASSESSMENT AND PLAN:
[2019-03-25 00:21] VITALS: BP 121/75; PULSE 96; TEMP 98.2
== END 2019-03-24 22:00 | disposition home or self-care (01) ==
LOC: JER 12:48 → JERBED 17:58 → J8W 22:40
PROVIDERS: ADMIT Internal Medicine; ATTEND Internal Medicine
PROC: 3E03329 Introduction of Other Anti-infective into Peripheral Vein, Percutaneous Approach (ICD-10-PCS; principal; 2019-03-23)
PROC: 3E033NZ Introduction of Analgesics, Hypnotics, Sedatives into Peripheral Vein, Percutaneous Approach (ICD-10-PCS; 2019-03-23)
PROC: 3E033GC Introduction of Other Therapeutic Substance into Peripheral Vein, Percutaneous Approach (ICD-10-PCS; 2019-03-23)
DX: H81.11 Benign paroxysmal vertigo, right ear (principal); H60.91 Unspecified otitis externa, right ear; H93.11 Tinnitus, right ear; J02.9 Acute pharyngitis, unspecified; H92.01 Otalgia, right ear; E78.5 Hyperlipidemia, unspecified; Z88.5 Allergy status to narcotic agent
CPT/HCPCS: 36415; 70450-TC; 70551-TC; 71045-TC-FY; 80053; 81003; 82550; 83735; 84100; 84484; 84703; 85025; 85730; 86850; 86900; 86901; 87040; 93005; 93010; 99283-25; G0378; G0480; J0131; J7030